=== PATIENT | female | born 2000 | race Caucasian/White ===

== ENCOUNTER → 2021-06-28 | Outpatient (CLI) | payer OTHER | LOC: US 12:38 | PROVIDERS: ATTEND Internal Medicine Gastroenterology | DX: R10.10 Upper abdominal pain, unspecified (principal); R10.30 Lower abdominal pain, unspecified | CPT/HCPCS: 76700; 76856 ==

== ENCOUNTER → 2021-09-04 | Day surgery (SDC) | payer OTHER ==
[~2021-09-04] MED LIST: FENTANYL CITRATE/PF 100MCG/2 ML INJ ONE; MIDAZOLAM HCL 5 MG/ML VIAL ONE; PROPOFOL IV EMULSION 10 MG/ML 20 ML VIAL ONE
[2021-09-04 08:35] VITALS: BP 124/80
== END | disposition home or self-care (01) ==
LOC: OR 06:28
PROVIDERS: ATTEND Internal Medicine Gastroenterology
DX: K29.70 Gastritis, unspecified, without bleeding (principal); K20.90 Esophagitis, unspecified without bleeding
CPT/HCPCS: 43239; 81025; C9113; J2250; J2704; J3010